=== PATIENT | male | born 1995 | race Caucasian/White ===

== ENCOUNTER 2017-08-29 04:28 | Emergency (ER) | payer SELFPAY ==
[~2017-08-29] VITALS: Ht 188 cm; Wt 95.3 kg
[2017-08-29 04:28] VITALS: BP_SYST 153
--- NOTE | 2017-08-29 04:28 | NUR ---
Patient AAOx3, ambulatory. Patient escorted into ER bay in handcuffs. Law enforcement states that a medical evaluation is needed for the patient due to the patient being involved in "a takedown when running from law enforcement". Patient denies pain, no signs of acute distress noted. Patient denies any other complaints.
--- NOTE | 2017-08-29 04:28 | NUR ---
Patient to [facility] for evaluation. Side rails up.
--- NOTE | 2017-08-29 04:40 | NUR ---
ER Dr. Schmidt at bedside examining patient.
[2017-08-29 04:47] VITALS: BP_SYST 149
--- NOTE | 2017-08-29 04:47 | NUR ---
Patient given verbal discharge instructions and verbalizes understanding. ER MD discussed with patient the results and treatment provided. Patient in stable condition. ID arm band removed. Patient educated on pain management and to follow up with PMD. Pain Scale 0/10. Opportunity for questions provided and answered. Care of patient endorsed to law enforcement. Patient escorted out of ER bay in handcuffs with law enforcement.
[2017-08-29] MEDS ORDERED: KETOROLAC TROMETHAMINE 60 MG/2 ML VIAL IM ONE (05:00)
== END 2017-08-29 04:47 ==
LOC: SED 04:28
DX: Z02.89 Encounter for other administrative examinations (principal)
CPT/HCPCS: 99283